=== PATIENT | female | born 1985 | race Caucasian/White ===

== ENCOUNTER 2017-07-04 17:37 | Inpatient (IN) | payer OTHER ==
[~2017-07-04] VITALS: Ht 165.1 cm; Wt 64.1 kg
[2017-07-04 20:16] LABS: HEMATOCRIT 40.3 % (36.0-46.0); MCH 28.4 PG (29.0-34.0); MCHC 32.3 G/DL (30.0-36.0); MCV 88.2 FL (83-99); MEAN PLAT.VOLUME 10.5 uM^3 (9.5-12.4); PLATELET COUNT 220 K/uL (156-360); RBC DIS.WIDTH-CV 12.7 % (11.8-14.6); RED BLOOD COUNT 4.57 M/uL (3.80-5.20); WHITE BLOOD COUNT 14.3 K/uL (4.1-10.2)
[2017-07-04 20:25] LABS: CHLORIDE 106 mEq/L (99-109); POTASSIUM 3.5 mEq/L (3.7-5.4); SODIUM 138 mEq/L (136-147)
[2017-07-04 20:27] LABS: GLUCOSE 99 mg/dL (70-99)
[2017-07-04 20:28] LABS: ANION GAP 11 MEQ/L (2-14)
[2017-07-04 20:30] LABS: GFR ESTIMATE (CALCULATED) > 59 mL/min/
[2017-07-04 20:31] LABS: UREA NITROGEN (BUN) 6 mg/dL (9-23)
[2017-07-04] MEDS ORDERED: [UNRECOGNIZED DRUG - OTHER] (20:49)
[2017-07-04] MEDS ORDERED: VENTOLIN HFA18 GM IH (20:50)
[2017-07-04] MEDS ORDERED: SINGULAIR10 MG PO (20:50)
[2017-07-04] MEDS ORDERED: ZYRTEC (20:58)
[2017-07-04] MEDS ORDERED: CITRACAL (20:58)
[2017-07-04] MEDS ORDERED: PROBIOTIC (20:59)
[2017-07-04] MEDS ORDERED: GLUCOSAMINE (20:59)
[2017-07-04] MEDS ORDERED: VITAMIN D31000 UNIT PO (20:59)
[2017-07-04 22:02] LABS: TOTAL BILIRUBIN 0.7 mg/dL (0.0-1.0)
[2017-07-04 22:03] LABS: ALKALINE PHOSPHATASE 102 IU/L (3-129)
[2017-07-04 22:05] LABS: DIRECT BILIRUBIN 0.3 mg/dL (0.0-0.3)
[2017-07-05 01:10] VITALS: BP 119/68
[2017-07-05 08:48] VITALS: BP 112/70
[2017-07-05 09:07] LABS: HEMATOCRIT 36.2 % (36.0-46.0); MCH 28.4 PG (29.0-34.0); MCHC 31.8 G/DL (30.0-36.0); MCV 89.4 FL (83-99); MEAN PLAT.VOLUME 10.9 uM^3 (9.5-12.4); PLATELET COUNT 190 K/uL (156-360); RBC DIS.WIDTH-CV 12.6 % (11.8-14.6); RBC DIS.WIDTH-SD 41.5 % (39-53); RED BLOOD COUNT 4.05 M/uL (3.80-5.20); WHITE BLOOD COUNT 9.5 K/uL (4.1-10.2)
[2017-07-05 09:32] LABS: ALKALINE PHOSPHATASE 76 IU/L (3-129); ANION GAP 6 MEQ/L (2-14); CHLORIDE 108 MEQ/L (99-109); GFR ESTIMATE (CALCULATED) > 59 mL/min/; GLUCOSE 135 mg/dL (70-99); POTASSIUM 3.9 MEQ/L (3.7-5.4); SAMPLE HEMOLYSIS CHECK 0; SAMPLE ICTERIC CHECK 0; SAMPLE LIPEMIA CHECK 0; SODIUM 138 MEQ/L (136-147); TOTAL BILIRUBIN 0.6 MG/DL (0.0-1.0); UREA NITROGEN (BUN) 6 mg/dL (9-23)
[2017-07-05 15:22] LABS: INTER. NORMALIZED RATIO 1.2; PROTHROMBIN TIME 13.8 SEC (10.2-12.9)
[2017-07-05 15:25] LABS: PTT 29.4 SEC (25-37)
[2017-07-05 17:04] VITALS: BP 124/720
[2017-07-05 22:56] VITALS: BP 100/53
[2017-07-06 06:41] LABS: EOSINOPHIL (%) 0 % (0-5); HEMATOCRIT 35.9 % (36.0-46.0); IMMATURE GRANULOCYTE (%) 0.6 % (0.0-0.7); IMMATURE GRANULOCYTE COUNT 0.1 K/uL; INSTRUMENT ABS NEUTROPHIL CT 9.7 K/uL; LYMPHOCYTE COUNT 0.8 K/uL (1.0-2.8); MCH 28.5 PG (29.0-34.0); MCV 88.9 FL (83-99); MEAN PLAT.VOLUME 11.1 uM^3 (9.5-12.4); MONOCYTE (%) 3.1 % (3-12); MONOCYTE COUNT 0.3 K/uL (0-0.8); NEUTROPHIL COUNT 9.7 K/uL (1.8-6.4); PLATELET COUNT 197 K/uL (156-360); RBC DIS.WIDTH-CV 12.6 % (11.8-14.6); RBC DIS.WIDTH-SD 41.1 % (39-53); RED BLOOD COUNT 4.04 M/uL (3.80-5.20); WHITE BLOOD COUNT 10.9 K/uL (4.1-10.2)
[2017-07-06 07:30] VITALS: BP 118/68
[2017-07-06 07:30] LABS: ANION GAP 8 MEQ/L (2-14); CHLORIDE 112 MEQ/L (99-109); GFR ESTIMATE (CALCULATED) > 59 mL/min/; GLUCOSE 157 mg/dL (70-99); POTASSIUM 4.2 MEQ/L (3.7-5.4); SAMPLE HEMOLYSIS CHECK 0; SAMPLE ICTERIC CHECK 0; SAMPLE LIPEMIA CHECK 0; SODIUM 139 MEQ/L (136-147); UREA NITROGEN (BUN) 5 mg/dL (9-23)
[2017-07-06] MEDS ORDERED: CITRACAL + D C1 EACH PO (13:26)
[2017-07-06] MEDS ORDERED: SINGULAIR10 MG PO (13:27)
[2017-07-06] MEDS ORDERED: ZYRTEC10 M3 PO (13:27)
[2017-07-06] MEDS ORDERED: VITAMIN D31000 UNI2 PO (13:28)
[2017-07-06] MEDS ORDERED: ASMANEX TW200 MICRO1 PO (13:29)
[2017-07-06] MEDS ORDERED: VENTOLIN HFA18 GM IH (13:30)
[2017-07-06] MEDS ORDERED: TESSALON PERLE100 MG PO (13:31)
[2017-07-06 17:07] VITALS: BP 109/70
[2017-07-06 23:11] VITALS: BP 115/65
[2017-07-07 06:43] LABS: EOSINOPHIL (%) 0 % (0-5); HEMATOCRIT 35.6 % (36.0-46.0); IMMATURE GRANULOCYTE (%) 0.8 % (0.0-0.7); IMMATURE GRANULOCYTE COUNT 0.1 K/uL; INSTRUMENT ABS NEUTROPHIL CT 13.5 K/uL; LYMPHOCYTE COUNT 1.5 K/uL (1.0-2.8); MCHC 33.7 G/DL (30.0-36.0); MONOCYTE (%) 4.6 % (3-12); MONOCYTE COUNT 0.7 K/uL (0-0.8); NEUTROPHIL (%) 85.3 % (45-76); NEUTROPHIL COUNT 13.5 K/uL (1.8-6.4); PLATELET COUNT 242 K/uL (156-360); RBC DIS.WIDTH-CV 13.1 % (11.8-14.6); RBC DIS.WIDTH-SD 42.5 % (39-53); WHITE BLOOD COUNT 15.8 K/uL (4.1-10.2)
[2017-07-07 07:21] LABS: ANION GAP 8 MEQ/L (2-14); CHLORIDE 109 MEQ/L (99-109); GFR ESTIMATE (CALCULATED) > 59 mL/min/; POTASSIUM 4.5 MEQ/L (3.7-5.4); SAMPLE HEMOLYSIS CHECK 0; SAMPLE ICTERIC CHECK 0; SAMPLE LIPEMIA CHECK 0; SODIUM 140 MEQ/L (136-147); UREA NITROGEN (BUN) 6 mg/dL (9-23)
[2017-07-07 07:24] LABS: GLUCOSE 115 mg/dL (70-99)
[2017-07-07 08:10] VITALS: BP 104/52
[2017-07-07 23:35] VITALS: BP 105/52
[2017-07-08 06:54] VITALS: BP 117/66
[2017-07-08] MEDS ORDERED: LEVAQUIN750 MG PO (12:06)
[2017-07-08] MEDS ORDERED: MEDROL DOSEPAK4 MG PO (12:08)
[2017-07-08] MEDS ORDERED: FAMOTIDINE20 MG PO (12:09)
[2017-07-08] MEDS ORDERED: TESSALON PERLE100 MG PO (12:47)
[2017-07-08] MEDS ORDERED: ALLER-CHLOR2 MG/5 ML PO (12:50)
[2017-07-09 01:02] LABS: QGTB-NIL 0.02 IU/mL (()); TB AG-NIL 0.05 IU/mL (())
== END 2017-07-08 12:50 | disposition home or self-care (01) | DRG 168 ==
LOC: CT 17:37 → EME 17:37 → EDSTATUS 19:25 → 5EAST 22:52 → EDOF 22:52 → ENRESERV 22:55 → 5EAST 07-05 00:50
PROVIDERS: Hospitalist; Internal Medicine; Internal Medicine Pulmonary Disease; Nurse Practitioner Family
PROC: 0BBC4ZX Excision of Right Upper Lung Lobe, Percutaneous Endoscopic Approach, Diagnostic (ICD-10-PCS; principal; 2017-07-07)
DX: J18.9 Pneumonia, unspecified organism (principal); J45.30 Mild persistent asthma, uncomplicated; R91.8 Other nonspecific abnormal finding of lung field; D3A.090 Benign carcinoid tumor of the bronchus and lung; Z87.891 Personal history of nicotine dependence; Z80.1 Family history of malignant neoplasm of trachea, bronchus and lung; Z82.49 Family history of ischemic heart disease and other diseases of the circulatory system; Z83.3 Family history of diabetes mellitus
CPT/HCPCS: 71010; 71020; 71250; 77012; 80048; 80053; 80076; 85025; 85027; 85610; 85730; 86480 90; 87040; 88305; 88341 TC; 88342 TC; 93005; 94640; 94640 76; 99202; 99281; 99285; J1644; J1956; J2405; J2920; J3010; J7030; J7512